=== PATIENT | male | born 1965 | race Hispanic/Latino ===

== ENCOUNTER 2017-02-27 08:59 | Inpatient (IN) | payer MEDICAID ==
[2017-02-27 08:59] VITALS: BMI 20.9
[2017-02-27] MEDS ORDERED: Sodium Chloride 0.9% 500 ML IV ONE ×2 (10:34→11:43)
--- NOTE | 2017-02-27 11:06 | C.PDOC ---
History Of Present Illness 51 y/o male presents to ED for evaluation of left leg pain, redness and swelling gradually worsen for "few days". Patient admits to history of chronic pain with intermittent exacerbation. Patient states "I am homeless and suicidal " but denies plan, chest pain, shortness of breath or any other complaints at this time. Time Seen by Provider: 02/27/17 09:31 Chief Complaint (Nursing): Lower Extremity Problem/Injury History Per: Patient History/Exam Limitations: no limitations Onset/Duration Of Symptoms: Days, Gradual Current Symptoms Are (Timing): Still Present Past Medical History Reviewed: Historical Data, Nursing Documentation, Vital Signs Vital Signs: Last Vital Signs Temp 98.2 F 02/27/17 09:22 Pulse 73 02/27/17 09:22 Resp 18 02/27/17 09:22 BP 130/86 02/27/17 09:22 Pulse Ox 98 02/27/17 12:34 - Medical History PMH: Anxiety, Bipolar Disorder, Depression, Deep Vein Thrombosis, Fractures ( Left tibia and ankle), Hypercholesterolemia, Paranoia, Schizophrenia Surgical History: Appendectomy, Tonsillectomy - [facility] Procedures GROUP PSYCHOTHERAPY (02/18/17) INDIVIDUAL PSYCHOTHERAPY, COGNITIVE-BEHAVIORAL (02/18/17) Family History: States: No Known Family Hx - Social History Hx Tobacco Use: Yes Hx Alcohol Use: No Hx Substance Use: No - Immunization History Hx Tetanus Toxoid Vaccination: Yes Hx Influenza Vaccination: Yes Hx Pneumococcal Vaccination: Yes Review Of Systems Except As Marked, All Systems Reviewed And Found Negative. Cardiovascular: Negative for: Chest Pain Respiratory: Negative for: Shortness of Breath Musculoskeletal: Positive for: Leg Pain Psych: Positive for: Suicidal ideation Physical Exam - Physical Exam Appears: Non-toxic, No Acute Distress Skin: Warm, Dry, Rash Head: Normacephalic Eye(s): bilateral: PERRL Nose: No Flaring, No Discharge Oral Mucosa: Moist, No Drooling Tongue: Normal Appearing Lips: Normal Appearing Throat: No Drooling Neck: Trachea Midline, Supple Cardiovascular: Rhythm Regular, No Murmur, No JVD Respiratory: No Accessory Muscle Use, No Rales, No Rhonchi, No Wheezing Gastrointestinal/Abdominal: Soft, No Tenderness, No Guarding, No Rebound Back: No CVA Tenderness Extremity: Normal ROM, Tenderness (diffuse Left ankle), Capillary Refill (less than 2sec to Left foot), No Deformity, Other (left ankle: diffuse non pitting edema extend down to Left foot with scant diffuse erythema, chronic skin changes. NO peroximal streaking.) Extremity: Bilateral: Normal ROM Pulses: Left Dorsalis Pedis: Normal, Right Dorsalis Pedis: Normal Neurological/Psych: Oriented x3, Normal Motor, Normal Sensation, Normal Reflexes ED Course And Treatment - Laboratory Results Result Diagrams: 02/27/17 11:47 02/27/17 11:59 Lab Interpretation: Normal O2 Sat by Pulse Oximetry: 98 (RA) Pulse Ox Interpretation: Normal - Other Rad Let ankle X-Ray: Read By Radiologist Interpretation: Left ankle three views. History: Pain. Comparison: Swelling. Findings: Side plate with screw fixation seen within the distal tibia and fibula of a chronic fracture. Prominent sclerosis, callus formation, cortical irregularity seen at the level of the distal tibia and fibula. Narrowing of the tibiotalar joint space with diffuse osteopenia. Mild productive change at the anterior aspect of the tibiotalar joint space. Prominent plantar and dorsal calcaneal spurring. Degenerative changes within the dorsal aspect the midfoot. Prominent medial and lateral malleolar soft tissue swelling. Impression: Prominent medial and lateral malleolar soft tissue swelling. Postsurgical and posttraumatic changes as described above. Degenerative changes as described above. - CT Scan/US Doppler US LLE Other Rad Studies (CT/US): Radiology Report Reviewed CT/US Interpretation: limited study (-) acute DVT Progress Note: On re-eavluation, pt remained stable, not in nay apparent distress. AFebrile, hemodynamicaly stable. Non-toxic. PUlseOx 98% RA. Neck: Supple. Lungs: CTA B/L, BS equal B/L. CVS: (+)S1S2, reg. Abd: benign. LLE: exam c/w Left ankle edema with chronic skin changes likely sec PVD. Blood work review and appears at baseline, no acute leukocytosis. Doppler US results (+) limited study, although negative for DVT. Pt is medically cleared for psych evaluation. Pt was evaluated by bingo worker Mateusz and case discussed with [id number] and arranged. Disposition - Disposition Disposition: HOSPITALIZED Disposition Time: 12:28 Condition: STABLE Forms: [employer] ([place]) - Clinical Impression Clinical Impression: Suicidal ideation, Bipolar depression, Cellulitis - PA / [employer] OPERATOR / Resident Statement MD/DO has reviewed & agrees with the documentation as recorded. - Scribe Statement The provider has reviewed the documentation as recorded by the Eleuterio Quiles All medical record entries made by the Eleuterio were at my direction and personally dictated by me. I have reviewed the chart and agree that the record accurately reflects my personal performance of the history, physical exam, medical decision making, and the department course for this patient. I have also personally directed, reviewed, and agree with the discharge instructions and disposition.
--- NOTE | 2017-02-27 11:20 | RAD ---
Left ankle three views History: Pain. Comparison: Swelling. Findings: Side plate with screw fixation seen within the distal tibia and fibula of a chronic fracture. Prominent sclerosis, callus formation, cortical irregularity seen at the level of the distal tibia and fibula. Narrowing of the tibiotalar joint space with diffuse osteopenia. Mild productive change at the anterior aspect of the tibiotalar joint space. Prominent plantar and dorsal calcaneal spurring. Degenerative changes within the dorsal aspect the midfoot. Prominent medial and lateral malleolar soft tissue swelling. Impression: Prominent medial and lateral malleolar soft tissue swelling. Postsurgical and posttraumatic changes as described above. Degenerative changes as described above.
[2017-02-27] MEDS ORDERED: Vancomycin 1 GM 1 GM/250 ML BAG IVPB ONE (11:43)
[2017-02-27 11:51] LABS: BASO # 0.1 K/uL (0.0-0.2); BASO % 0.6 % (0.0-2.0); EOS # 0.2 K/uL (0.0-0.7); EOS % 2.3 % (0.0-4.0); HEMATOCRIT 41.9 % (35.0-51.0); LYMPH # 2.4 K/uL (1.0-4.3); LYMPH % 23.9 % (20.0-40.0); MEAN CELL VOLUME 88.7 fL (80.0-94.0); MEAN CORPUSCULAR HEMOGLOBIN 30.6 pg (27.0-31.0); MEAN CORPUSCULAR HGB CONC 34.5 g/dL (33.0-37.0); MEAN PLATELET VOLUME 6.9 fL (7.2-11.7); MONO % 9.8 % (0.0-10.0); WHITE BLOOD COUNT 9.9 K/uL (4.8-10.8)
[2017-02-27 12:07] LABS: CHLORIDE 99 mmol/L (98-107); POTASSIUM 3.4 mmol/L (3.6-5.2); SODIUM 134 mmol/L (132-148)
[2017-02-27 12:09] LABS: ALB/GLOB RATIO 1.9 (1.0-2.1); AST/SGOT 51 U/L (17-59); BILIRUBIN,TOTAL 1.1 mg/dL (0.2-1.3); CARBON DIOXIDE 22 mmol/L (22-30); GFR AFRICAN-AMERICAN > 60; TOTAL PROTEIN 6.7 g/dL (6.3-8.3)
[2017-02-27 12:10] LABS: ALCOHOL SERUM < 10 mg/dl (0-10); ALKALINE PHOSPHATASE 112 U/L (38-126); ALT/SGPT 30 U/L (21-72); BLOOD UREA NITROGEN 22 mg/dL (9-20); CALCIUM 8.8 mg/dl (8.6-10.4); GLUCOSE,RANDOM 92 mg/dL (75-110)
[2017-02-27 12:12] LABS: RBC URINE 1 /hpf (0-3); URINE BACTERIA RARE (<OCC); URINE BILIRUBIN NEGATIVE (NEGATIVE); URINE BLOOD NEGATIVE (NEGATIVE); URINE COLOR Yellow (YELLOW); URINE GLUCOSE (UA) NORMAL (Normal); URINE KETONE TRACE mg/dL (NEGATIVE); URINE LEUKOCYTE ESTERASE NEG Leu/uL (Negative); URINE PROTEIN NEGATIVE (NEGATIVE); WBC URINE 2 /hpf (0-5)
--- NOTE | 2017-02-27 14:18 | VASCLAB ---
PROCEDURE: Left Lower Extremity Venous Duplex Exam. HISTORY: Left lower leg pain, swelling, redness PRIORS: None. TECHNIQUE: Left common femoral, femoral, popliteal and posterior tibial, peroneal and great saphenous veins were evaluated. Flow was assessed with color Doppler, compressibility, assessment of phasic flow and augmentation response. Report prepared by ALY Gallego FINDINGS: LEFT: 1. Common Femoral Vein: 1.1. Compressibility - Fully compressible: Thrombus - None : Flow - Phasic: Augmentation -Normal: Reflux - None. 2. Femoral Vein: 2.1. Compressibility - Fully compressible: Thrombus - None: Flow - Phasic: Augmentation -Normal: Reflux - None. 3. Popliteal Vein: 3.1. Compressibility - Fully compressible: Thrombus - None: Flow - Phasic: Augmentation -Normal: Reflux - None. 4. Posterior Tibial Vein: 4.1. Compressibility - Fully compressible: Thrombus - None: Flow - Phasic: Augmentation -Normal: Reflux - None. 5. Peroneal Vein: 5.1. Not imaged due to swelling 6. Great Saphenous Vein: 6.1. Compressibility - Fully compressible: Thrombus - None: Flow - Phasic: Augmentation - Normal: Reflux - None. OTHER FINDINGS: Normal venous flow noted in the right common femoral vein. IMPRESSION: 1. Unable to clearly image the left peroneal veins due to swelling in the calf. 2. No evidence of deep or superficial vein thrombosis for the remaining veins, of the left lower extremity.
--- NOTE | 2017-02-27 20:52 | PCM.BM ---
<Ingrid Womack - Last Filed: 02/27/17 20:50> Treatment Plan Problems - Problems identified on initial assessmt Depression Date Initiated: 02/27/17 Time Initiated: 14:30 Assessment reference: NA Status: Active Suicidal Ideation Date Initiated: 02/27/17 Time Initiated: 14:30 Assessment reference: NA Treatment assets and liabiliti Patient Assests: cooperative, negotiates basic needs, cognitively intact Patient Liabilities: poor support system, relationship conflicts - Milieu Protocol Maintain good personal hygiene: daily Encourage regular showers, daily Remind patient to perform daily oral care Maintain personal safety: every shift Educate patient to report safety concerns to staff, every shift Monitor environment for contraband/sharps Medication safety: Monitor for expected outcome, potential side effects: every shift, Assess barriers to learning: every shift, Assess readiness for medication education: every shift <David Kumar - Last Filed: 02/28/17 16:11> - Diagnosis (1) Bipolar 1 disorder, depressed Status: Acute Interventions: Assess/adjust medications daily and/or as needed SEE patient on him individual basis 7x/week to assess status of hallucinations. Discuss risks, benefits, side effects and alternatives of medications. 02/28/17 16:12 <Eileen William - Last Filed: 03/01/17 10:51> Family Contact Family involvement: Famliy/SO not involved - Outside Agency Agency 1 Care involvment: Following patient during stay Agency contact name: [facility] Agency contact number: - Goals for Treatment Patient goals for treatment: "I want to go back to the [facility]." Discharge/Continuing Care - Education Needs Education Needs: Patient Medication, Patient Coping Skills - Discharge Discharge Criteria: Tolerates medication w/o severe side effects, Free of Suicidal thoughts, Reduction of target symptoms Discharge to:: Care Home - Treatment Team Participation Discussed with Family/SO: No Was Patient/Family/SO present at Treatment Team Meeting: Yes
--- NOTE | 2017-02-28 13:09 | CP.PCM.CON ---
<Johny Gruber - Last Filed: 02/28/17 15:30> History of Present Illness - History of Present Illness History of Present Illness: Pt is a 51yo M presents with swelling, tenderness, and paresthesias of the LLE for the past week. The pt reports that his LLE has always been more swollen after he sustained trauma that fractured his L tibia and ankle which required [place] [address] Ch[address]al, he was sent to rehab but continues to have difficulty weight bearing as well as issues with swelling and pain. The Pt reports that the leg began to swell last Monday and became progressively worse until last night. The pt reports that he has moderate pain in the LLE but feels more numbness in the leg than pain. He says the leg is more erythematous than normal. He denies n/v/f/c, chest pain, shortness of breath, abd pain, headache, dizziness, diarrhea, constipation. PMD: none PMH: HLD PSH: L ORIF tibia and ankle (jun 2015), septoplasty, appendectomy, tonsillectomy Psych: Bipolar Type 1 Meds: Lipitor Allergies: NKDA FamHx: non-contributory SocialHx: denies tobacco, etoh, and illicit drug use Review of Systems - Constitutional Constitutional: absent: Fever, Headache - Cardiovascular Cardiovascular: absent: Chest Pain, Dyspnea on Exertion - Respiratory Respiratory: absent: Dyspnea on Exertion, Wheezing - Gastrointestinal Gastrointestinal: absent: Abdominal Pain, Constipation, Diarrhea - Musculoskeletal Musculoskeletal: Joint Swelling, Numbness - Integumentary Integumentary: Erythema - Neurological Neurological: absent: Dizziness, Headaches Past Patient History - Infectious Disease Hx of Infectious Diseases: None - Tetanus Immunizations Tetanus Immunization: Unknown - Past Medical History & Family History Past Medical History?: No - Past Social History Smoking Status: Never Smoked - CARDIAC Hx Hypercholesterolemia: Yes - PULMONARY Hx Tuberculosis: No - NEUROLOGICAL HX Cerebrovascular Accident: No Hx Seizures: No - HEENT Hx HEENT Problems: No - ENDOCRINE/METABOLIC Hx Endocrine Disorders: No - HEMATOLOGICAL/ONCOLOGICAL Hx Cancer: No Hx Human Immunodeficiency Virus (HIV): No - INTEGUMENTARY Hx Dermatological Problems: No - MUSCULOSKELETAL/RHEUMATOLOGICAL Hx Fractures: Yes (Left tibia and ankle) - GASTROINTESTINAL Hx Gastrointestinal Disorders: Yes Hx Gastroesophageal Reflux: Yes - GENITOURINARY/GYNECOLOGICAL Hx Sexually Transmitted Disorders: No - PSYCHIATRIC Hx Substance Use: No - SURGICAL HISTORY Hx Appendectomy: Yes Hx Tonsillectomy: Yes - ANESTHESIA Hx Anesthesia: Yes Hx Anesthesia Reactions: No Meds Allergies/Adverse Reactions: Allergies Allergy/AdvReac Type Severity Reaction Status Date / Time No Known Allergies Allergy Verified 02/27/17 09:25 - Medications Medications: Current Medications Hydroxyzine HCl (Atarax) 25 mg PO Q6H PRN PRN Reason: Anxiety Ibuprofen (Motrin Tab) 600 mg PO Q8H PRN PRN Reason: Pain, moderate (4-7) Pneumococcal Polyvalent Vaccine (Pneumovax 23 Vaccine) 0.5 ml IM .ONCE ONE Stop: 03/01/17 10:01 Trazodone HCl (Desyrel) 50 mg PO Q6H PRN PRN Reason: Insomnia Physical Exam - Constitutional Appears: Well, Non-toxic, No Acute Distress - Head Exam Head Exam: ATRAUMATIC, NORMAL INSPECTION - Eye Exam Eye Exam: EOMI, Normal appearance - ENT Exam ENT Exam: Mucous Membranes Moist, Normal Exam - Respiratory Exam Respiratory Exam: Clear to Auscultation Bilateral. absent: Wheezes - Cardiovascular Exam Cardiovascular Exam: REGULAR RHYTHM, +S1, +S2 - GI/Abdominal Exam GI & Abdominal Exam: Normal Bowel Sounds - Extremities Exam Extremities exam: Positive for: joint swelling, tenderness, pedal pulses present Additional comments: Erythema, swelling w/ tenderness and paresthesias of LLE - Neurological Exam Neurological exam: Alert, Normal Gait, Oriented x3 - Skin Skin Exam: Erythema, Warm Additional comments: LLE mid tibia, ankle, and foot. Results - Vital Signs Recent Vital Signs: Last Vital Signs Temp 97.7 F 02/28/17 07:23 Pulse 59 L 02/28/17 07:23 Resp 18 02/28/17 07:23 BP 111/69 02/28/17 07:23 Pulse Ox 100 02/27/17 14:01 - Labs Result Diagrams: 02/27/17 11:47 02/27/17 11:59 Labs: Laboratory Results - last 24 hr 02/27/17 20:03 [place] < 0.2 L Assessment & Plan (1) Cellulitis Assessment and Plan: afebrile, no leukocytosis X-Ray 02/27/17 left ankle, Impression: Prominent medial and lateral malleolar soft tissue swelling. Duplex scan LLE 02/27/17, Impression: 1. unable to clearly image the left peroneal veins due to swelling in the calf, 2. No evidence of deep or superficial vein thrombosis for the remaining veins, of the left lower extremity. Blood culture collected 02/27/17, f/u clindamycin 450mg po q6h started 02/28/17 Status: Acute (2) Suicidal ideation Assessment and Plan: Management/Treatment as per Psychiatry. Status: Acute - Date & Time Date: 02/28/17 Time: 13:12 <Merced Rosado - Last Filed: 02/28/17 17:36> Meds - Medications Medications: Current Medications Clindamycin HCl (Cleocin) 450 mg PO Q6H PAULINA Last Admin: 02/28/17 16:25 Dose: 450 mg Haloperidol (Haldol) 5 mg PO Q6 PRN PRN Reason: Agitation Hydroxyzine HCl (Atarax) 25 mg PO Q6H PRN PRN Reason: Anxiety Ibuprofen (Motrin Tab) 600 mg PO Q8H PRN PRN Reason: Pain, moderate (4-7) [place] Carbonate ([place] Carbonate 300mg) 900 mg PO HS PAULINA Pneumococcal Polyvalent Vaccine (Pneumovax 23 Vaccine) 0.5 ml IM .ONCE ONE Stop: 03/01/17 10:01 Trazodone HCl (Desyrel) 100 mg PO Q6H PRN PRN Reason: Insomnia Results - Vital Signs Recent Vital Signs: Last Vital Signs Temp 97.7 F 02/28/17 07:23 Pulse 77 02/28/17 15:42 Resp 18 02/28/17 07:23 BP 114/65 02/28/17 15:42 Pulse Ox 100 02/27/17 14:01 - Labs Result Diagrams: 02/27/17 11:47 02/27/17 11:59 Labs: Laboratory Results - last 24 hr 02/27/17 20:03 [place] < 0.2 L Attending/Attestation - Attestation I have personally seen and examined this patient.: Yes I have fully participated in the care of the patient.: Yes I have reviewed all pertinent clinical information: Yes Notes (Text): This is a 51yo Male was seen at psychiatry unit for swelling, tenderness, and paresthesias of the LLE for the past week. The pt reports that his LLE has always been more swollen after he sustained trauma that fractured his L tibia and ankle which required surgery in [address] Ch[address]al, he was sent to rehab but continues to have difficulty weight bearing as well as issues with swelling and pain. The Pt reports that the leg began to swell last Monday and became progressively worse until last night.No fever. Patient was seen and examined.Discussed with the resident.Agree with the assessment and documentation ebrile, no leukocytosis X-Ray 02/27/17 left ankle, Impression: Prominent medial and lateral malleolar soft tissue swelling. Duplex scan LLE 02/27/17, Impression: 1. unable to clearly image the left peroneal veins due to swelling in the calf, 2. No evidence of deep or superficial vein thrombosis for the remaining veins, of the left lower extremity. Blood culture collected 02/27/17, f/u Start on oral clindamycin 450mg po q6h and follow him.If no improvement may need IV antibiotics in the medical floor
--- NOTE | 2017-02-28 16:18 | PCM.PSYCH ---
Initial Psychiatric Evaluation - Initial Psychiatric Evaluation Type of Admission: Voluntary Legal Status: Capacity Chief Complaint (in patient's own words): I was depressed and suicidal. History of Present Illness and Precipitating Events: Patient is a 51 years old , unemployed, currently homeless male with history of bipolar 1 disorder, following up with his psychiatrist at [facility], currently noncompliant for last 1 week was admitted due to suicidal ideations. Initially patient came to the ER for the treatment of left leg swelling and pain. In the ER patient expressed suicidal ideations and depression and was admitted to psych floor. Patient reported feeling depressed with decreased sleep no change in appetite had suicidal ideations before without any plan. Patient denied any current suicidal ideations. Denied any suicidal attempts. Denied any psychotic or anxiety symptoms. History of more than 10 inpatient psychiatric admissions. Reported using cannabis in the past. Last use reported 3 years ago. Patient has history of appendectomy, tonsillectomy and left tibia and ankle surgery. Patient has history of incarceration first about 3 years ago for possession of drugs and second time more than one year ago for criminal mischief. Not on probation. Patient was born in [place], has Masters in [employer]. His last job was 4 years ago. According to patient he lost his job due to downsizing of the [employer]. He is and has no children. Currently homeless for last 3 years. Height is 6 feet 2 inches and weight is 185 pounds. Current Medications: Active Medications Generic Name Dose Route Start Last Admin Trade Name Freq PRN Reason Stop Dose Admin Clindamycin HCl 450 mg 02/28/17 15:30 Cleocin PO Q6H PAULINA Haloperidol 5 mg 02/28/17 13:17 Haldol PO Q6 PRN Agitation Hydroxyzine HCl 25 mg 02/28/17 00:17 Atarax PO Q6H PRN Anxiety Ibuprofen 600 mg 02/28/17 00:17 Motrin Tab PO Q8H PRN Pain, moderate (4-7) [place] Carbonate 900 mg 02/28/17 22:00 [place] Carbonate 300mg PO HS PAULINA Pneumococcal Polyvalent Vaccine 0.5 ml 03/01/17 10:00 Pneumovax 23 Vaccine IM 03/01/17 10:01 .ONCE ONE Trazodone HCl 100 mg 02/28/17 13:18 Desyrel PO Q6H PRN Insomnia Past Psychiatric History - Past Psychiatric History Previous Treatment History: Inpatient Prior Professional Help: Inpatient and outpatient At [facility]: Including [facility] History of Abuse: None reported History of ETOH/Drug Use: See HPI History of Family Illness: None reported Pertinent Medical Hx (Current Medical&Sleep Prob, Allergies): Allergies Allergy/AdvReac Type Severity Reaction Status Date / Time No Known Allergies Allergy Verified 02/27/17 09:25 No Known Home Med 02/27/17 Hypercholesterolemia Review of Systems - Psychiatric Psychiatric: Depression Mental Status Examination - Personal Presentation Personal Presentation: Looks stated age - Affect Affect: Depressed - Motor Activity Motor Activity: Calm - Reliability in Providing Information Reliability in Providing Information: Fair - Speech Speech: Organized - Mood Mood: Depressed - Formal Thought Process Formal Thought Process: No Impairment - Hallucinations/Delusions Hallucinations: Other (None reported) Delusions: Other - Obsessions/Compulsions Obsessions: None Compulsions: None - Cognitive Functions Orientation: Person, Place, Situation, Time Sensorium: Alert Attention/Concentration: Attentive Abstract Thinking: Orient Estimate of Intelligence: Average Judgement: Intact, as evidence by: Insight regarding need for hospitalization Memory: Recent intact, as evidence by: 3/3 object recall, Remote intact, as evidenced by: Ability to recall historical events - Risk Risk: Diminished functioning - Strength & Assets Inventory Strength & Assets Inventory: Education, Cooperative - Limitations Limitations: Other DSM 5 DX - DSM 5 DSM 5 Diagnosis: Bipolar 1 disorder most recent episode depressed - Recommended/Plan of Treatment Treatment Recommendations and Plan of Treatment: Patient education Supportive therapy We will start lithium. Patient was taking 900 mg of lithium at bedtime from his psychiatrist. Does confirm. Other when necessary medications Consult for medicine for his leg infection and swelling Projected ELOS: 8-10 days - Smoking Cessation Smoking Cessation Initiated: No Reason for not providing: Patient doesn't smoke cigarette
[2017-02-28] MEDS: Potassium Chloride 20 mEq ER Tab PO ONE ×2 (16:25→16:30)
[2017-02-28] MEDS ORDERED: Potassium Chloride 20 mEq ER Tab PO ONE (17:00)
[2017-03-01 08:52] LABS: BASO # 0.1 K/uL (0.0-0.2); BASO % 1.3 % (0.0-2.0); EOS # 0.3 K/uL (0.0-0.7); EOS % 3.3 % (0.0-4.0); HEMATOCRIT 42.7 % (35.0-51.0); LYMPH # 2.4 K/uL (1.0-4.3); LYMPH % 30.9 % (20.0-40.0); MEAN CELL VOLUME 88.8 fL (80.0-94.0); MEAN CORPUSCULAR HEMOGLOBIN 30.8 pg (27.0-31.0); MEAN CORPUSCULAR HGB CONC 34.7 g/dL (33.0-37.0); MEAN PLATELET VOLUME 7.4 fL (7.2-11.7); MONO # 0.6 K/uL (0.0-0.8); MONO % 7.4 % (0.0-10.0); NRBC % 0.1 % (0.0-2.0); RED CELL DISTRIBUTION WIDTH 13.4 % (11.5-14.5); WHITE BLOOD COUNT 7.8 K/uL (4.8-10.8)
[2017-03-01 09:06] LABS: CHLORIDE 104 mmol/L (98-107)
[2017-03-01 09:07] LABS: POTASSIUM 4.2 mmol/L (3.6-5.2); SODIUM 136 mmol/L (132-148)
[2017-03-01 09:10] LABS: ALB/GLOB RATIO 1.1 (1.0-2.1); ALKALINE PHOSPHATASE 92 U/L (38-126); ALT/SGPT 32 U/L (21-72); AST/SGOT 20 U/L (17-59); BILIRUBIN,TOTAL 0.4 mg/dL (0.2-1.3); BLOOD UREA NITROGEN 17 mg/dL (9-20); CARBON DIOXIDE 24 mmol/L (22-30); GFR AFRICAN-AMERICAN > 60; GLUCOSE,RANDOM 90 mg/dL (75-110); TOTAL PROTEIN 7.5 g/dL (6.3-8.3)
[2017-03-01 09:11] LABS: CALCIUM 9.1 mg/dl (8.6-10.4)
[2017-03-01] MEDS ORDERED: Influenza Vaccine 60 mcg/0.5 mL SYR (4YR UP) IM ONE (10:00)
[2017-03-01] MEDS ORDERED: Pneumococcal 23-Valent Vaccine IM ONE (10:00)
--- NOTE | 2017-03-01 12:46 | PCM.PYCHPN ---
Psychiatric Progress Note - Psychiatric Progress Note Patient seen today, length of contact: 15 minutes Patient Chief Complaint: I'm feeling much better with the treatment. Problems Identified/Issues Discussed: Patient seen. Chart reviewed. Case discussed with the staff. Issues related to illness and treatment were discussed with the patient. Reported compliant with treatment with no adverse affects. Tolerating treatment very well. Reported feeling much better. Swelling and redness on his left leg is also that better after start of clindamycin. Needs more time for stabilization. Patient time of evaluation, patient was awake alert oriented 3, had no delusions, no auditory or visual hallucinations, no suicidal ideations or homicidal ideations. Medical Problems: Hypercholesterinemia Diagnostic Results: Reviewed DSM 5 Symptoms Update: Improving with treatment Medication Change: No Medical Record Reviewed: Yes Consults ordered or reviewed: Reviewed Mental Status Examination - Cognitive Function Orientation: Person, Place, Situation, Time Memory: Intact Attention: WNL Concentration: WNL Association: WN Fund of Knowledge: [facility] Decription of patient's judgement and insights: Fair - Mood Mood: Depressed (Much less than before) - Affect Affect: Other (Appropriate) - Speech Speech: Appropriate - Formal Thought Process Formal Thought Process: No Impairment Psychotic Thoughts and Behaviors: None - Suicidal Ideation Suicidal Ideation: No - Homicidal Ideation Homicidal Ideation: No Goal/Treatment Plan - Goal/Treatment Plan Need for Continued Stay: Remain at risks for inpatient hospitalization, Discharge may exacerbated symptoms, Severe functional impairment Progress Toward Problem(s) and Goals/Treatment Plan: Patient education Supportive therapy Continue treatment as before Patient will go to [facility] for follow-up care with his psychiatrist , after discharge from the hospital. Estimated Date of D/C: 03/06/17 - Smoking Cessation Smoking Cessation Initiated: No
--- NOTE | 2017-03-01 17:06 | CP.PCM.PN ---
<Johyn Gruber - Last Filed: 03/01/17 17:03> Subjective - Date & Time of Evaluation Date of Evaluation: 03/01/17 Time of Evaluation: 09:20 - Subjective Subjective: Patient was seen and examined this AM in the psychiatry unit. He reports improvement in pain in his lower left extremity. He denies numbness, tingling, burning. He says he's been taking his antibiotic medications. He denies all other prompts on review of symptoms. He denies fever, chest pain, chills, nausea , vomiting, diarrhea, abdominal pain. Objective - Vital Signs/Intake and Output Vital Signs (last 24 hours): Temp Pulse Resp BP Pulse Ox 97.8 F 51 L 18 126/72 100 03/01/17 07:53 03/01/17 16:03 03/01/17 07:53 03/01/17 16:03 02/27/17 14:01 - Medications Medications: Current Medications Clindamycin HCl (Cleocin) 450 mg PO Q6H [facility] Last Admin: 03/01/17 15:31 Dose: 450 mg Haloperidol (Haldol) 5 mg PO Q6 PRN PRN Reason: Agitation Hydroxyzine HCl (Atarax) 25 mg PO Q6H PRN PRN Reason: Anxiety Ibuprofen (Motrin Tab) 600 mg PO Q8H PRN PRN Reason: Pain, moderate (4-7) [place] Carbonate ([place] Carbonate 300mg) 900 mg PO HS [facility] Last Admin: 02/28/17 21:47 Dose: 900 mg Trazodone HCl (Desyrel) 100 mg PO Q6H PRN PRN Reason: Insomnia Last Admin: 02/28/17 21:48 Dose: 100 mg - Labs Labs: 03/01/17 08:33 03/01/17 08:33 - Additional Findings Additional findings: - Constitutional Appears: Well, Non-toxic, No Acute Distress - Head Exam Head Exam: ATRAUMATIC, NORMAL INSPECTION - Eye Exam Eye Exam: EOMI, Normal appearance - ENT Exam ENT Exam: Mucous Membranes Moist, Normal Exam - Respiratory Exam Respiratory Exam: Clear to Auscultation Bilateral. absent: Wheezes - Cardiovascular Exam Cardiovascular Exam: REGULAR RHYTHM, +S1, +S2 - GI/Abdominal Exam GI & Abdominal Exam: Normal Bowel Sounds - Extremities Exam Extremities exam: Positive for: joint swelling, tenderness, pedal pulses present Additional comments: Erythema, swelling w/ tenderness and paresthesias of LLE in mid-dover - Neurological Exam Neurological exam: Alert, Normal Gait, Oriented x3 - Skin Skin Exam: Erythema, Warm Additional comments: LLE mid tibia, ankle, and foot. Assessment and Plan (1) Cellulitis Status: Acute (2) Suicidal ideation Status: Acute - Assessment and Plan (Free Text) Assessment: Assessment & Plan (1) Left Leg Cellulitis Assessment and Plan: improvement noted, afebrile, no leukocytosis, tolerating oral antibiotics X-Ray 02/27/17 left ankle, Impression: Prominent medial and lateral malleolar soft tissue swelling. Duplex scan LLE 02/27/17, Impression: 1. unable to clearly image the left peroneal veins due to swelling in the calf, 2. No evidence of deep or superficial vein thrombosis for the remaining veins, of the left lower extremity. Blood culture collected 02/27/17, f/u continue clindamycin 450mg po q6h, started 02/28/17 Status: Acute (2) Depression and Bipolar Disorder Assessment and Plan: Management/Treatment as per Psychiatry. Status: Acute <Merced Rosado - Last Filed: 03/01/17 18:00> Objective - Vital Signs/Intake and Output Vital Signs (last 24 hours): Temp Pulse Resp BP Pulse Ox 97.8 F 51 L 18 126/72 100 03/01/17 07:53 03/01/17 16:03 03/01/17 07:53 03/01/17 16:03 02/27/17 14:01 - Medications Medications: Current Medications Clindamycin HCl (Cleocin) 450 mg PO Q6H [facility] Last Admin: 03/01/17 15:31 Dose: 450 mg Haloperidol (Haldol) 5 mg PO Q6 PRN PRN Reason: Agitation Hydroxyzine HCl (Atarax) 25 mg PO Q6H PRN PRN Reason: Anxiety Ibuprofen (Motrin Tab) 600 mg PO Q8H PRN PRN Reason: Pain, moderate (4-7) [place] Carbonate ([place]agner Carbonate 300mg) 900 mg PO HS [facility] Last Admin: 02/28/17 21:47 Dose: 900 mg Trazodone HCl (Desyrel) 100 mg PO Q6H PRN PRN Reason: Insomnia Last Admin: 02/28/17 21:48 Dose: 100 mg - Labs Labs: 03/01/17 08:33 03/01/17 08:33 Attending/Attestation - Attestation I have personally seen and examined this patient.: Yes I have fully participated in the care of the patient.: Yes I have reviewed all pertinent clinical information, including history, physical exam and plan: Yes Notes (Text): This is is a 51yo Male was seen at psychiatry unit for swelling, tenderness, and paresthesias of the LLE for the past week. Started on clindamycin yesterday He was seen and examined this morning with the resident.Patient feels better.Swelling and tenderness is improving 1. Left leg cellulitis- continue oral clindamycin 450mg po q6h and follow him. Agree with the documentation of the resident's assessment and plan.
[2017-03-02 08:24] LABS: BASO # 0.1 K/uL (0.0-0.2); BASO % 0.8 % (0.0-2.0); EOS # 0.3 K/uL (0.0-0.7); HEMATOCRIT 39.4 % (35.0-51.0); LYMPH # 2.3 K/uL (1.0-4.3); LYMPH % 34.6 % (20.0-40.0); MEAN CELL VOLUME 88.7 fL (80.0-94.0); MEAN CORPUSCULAR HEMOGLOBIN 31.1 pg (27.0-31.0); MEAN PLATELET VOLUME 7.3 fL (7.2-11.7); MONO # 0.6 K/uL (0.0-0.8); NRBC % 0.1 % (0.0-2.0); RED CELL DISTRIBUTION WIDTH 13.3 % (11.5-14.5); WHITE BLOOD COUNT 6.7 K/uL (4.8-10.8)
[2017-03-02 08:49] LABS: CHLORIDE 106 mmol/L (98-107); SODIUM 136 mmol/L (132-148)
[2017-03-02 08:52] LABS: ALB/GLOB RATIO 1.5 (1.0-2.1); ALKALINE PHOSPHATASE 79 U/L (38-126); ALT/SGPT 29 U/L (21-72); AST/SGOT 17 U/L (17-59); BILIRUBIN,TOTAL 0.3 mg/dL (0.2-1.3); BLOOD UREA NITROGEN 13 mg/dL (9-20); CARBON DIOXIDE 21 mmol/L (22-30); GFR AFRICAN-AMERICAN > 60; GLUCOSE,RANDOM 93 mg/dL (75-110); TOTAL PROTEIN 5.7 g/dL (6.3-8.3)
[2017-03-02 08:53] LABS: CALCIUM 8.4 mg/dl (8.6-10.4)
--- NOTE | 2017-03-02 10:38 | CP.PCM.PN ---
<YasmaniJohny R - Last Filed: 03/02/17 10:35> Subjective - Date & Time of Evaluation Date of Evaluation: 03/02/17 Time of Evaluation: 10:35 - Subjective Subjective: PGY-1 note for medicine, Dr Rosado. Patient was seen and examined in psych unit today at 10:00 AM. He was in his wheelchair and appeared comfortable. He denied leg pain, fevers, chills. He says he elevates his foot when he sleeps. He says he's noticed less swelling today. He denied all other prompts on review of systems. Objective - Vital Signs/Intake and Output Vital Signs (last 24 hours): Temp Pulse Resp BP Pulse Ox 97.9 F 64 20 108/67 100 03/02/17 07:19 03/02/17 07:19 03/02/17 07:19 03/02/17 07:19 02/27/17 14:01 - Medications Medications: Current Medications Clindamycin HCl (Cleocin) 450 mg PO Q6H [facility] Stop: 03/03/17 15:31 Last Admin: 03/02/17 10:07 Dose: 450 mg Haloperidol (Haldol) 5 mg PO Q6 PRN PRN Reason: Agitation Hydroxyzine HCl (Atarax) 25 mg PO Q6H PRN PRN Reason: Anxiety Ibuprofen (Motrin Tab) 600 mg PO Q8H PRN PRN Reason: Pain, moderate (4-7) [place] Carbonate ([place] Carbonate 300mg) 900 mg PO HS [facility] Last Admin: 03/01/17 21:20 Dose: 900 mg Trazodone HCl (Desyrel) 100 mg PO Q6H PRN PRN Reason: Insomnia Last Admin: 03/01/17 21:20 Dose: 100 mg - Labs Labs: 03/02/17 08:10 03/02/17 08:10 - Additional Findings Additional findings: - Constitutional Appears: Well, Non-toxic, No Acute Distress - Head Exam Head Exam: ATRAUMATIC, NORMAL INSPECTION - Eye Exam Eye Exam: EOMI, Normal appearance - ENT Exam ENT Exam: Mucous Membranes Moist, Normal Exam - Respiratory Exam Respiratory Exam: Clear to Auscultation Bilateral. absent: Wheezes - Cardiovascular Exam Cardiovascular Exam: REGULAR RHYTHM, +S1, +S2 - GI/Abdominal Exam GI & Abdominal Exam: Normal Bowel Sounds - Extremities Exam Extremities exam: Positive for: joint swelling, tenderness, pedal pulses present Additional comments: Erythema, swelling w/ tenderness and paresthesias of LLE in mid-d[place] to ankle - Neurological Exam Neurological exam: Alert, Normal Gait, Oriented x3 motor strength of LLE 5/5 - Skin Skin Exam: Erythema, Warm Additional comments: LLE mid tibia, ankle, and foot. Assessment and Plan (1) Cellulitis Status: Acute (2) Suicidal ideation Status: Acute - Assessment and Plan (Free Text) Assessment: (1) Left Leg Cellulitis Assessment and Plan: improvement noted, afebrile, no leukocytosis, tolerating oral antibiotics X-Ray 02/27/17 left ankle, Impression: Prominent medial and lateral malleolar soft tissue swelling. Duplex scan LLE 02/27/17, Impression: 1. unable to clearly image the left peroneal veins due to swelling in the calf, 2. No evidence of deep or superficial vein thrombosis for the remaining veins, of the left lower extremity. Blood culture collected 02/27/17, negative up to date continue clindamycin 450mg po q6h, started 02/28/17, last dose will be 03/05/17 @ 15:00. Status: Acute (2) Depression and Bipolar Disorder Assessment and Plan: Management/Treatment as per Psychiatry. Status: Acute <Merced Rosado - Last Filed: 03/02/17 18:39> Objective - Vital Signs/Intake and Output Vital Signs (last 24 hours): Temp Pulse Resp BP Pulse Ox 97.9 F 52 L 20 124/74 100 03/02/17 07:19 03/02/17 16:05 03/02/17 07:19 03/02/17 16:05 02/27/17 14:01 - Medications Medications: Current Medications Clindamycin HCl (Cleocin) 450 mg PO Q6H [facility] Stop: 03/05/17 15:31 Last Admin: 03/02/17 15:33 Dose: 450 mg Haloperidol (Haldol) 5 mg PO Q6 PRN PRN Reason: Agitation Hydroxyzine HCl (Atarax) 25 mg PO Q6H PRN PRN Reason: Anxiety Ibuprofen (Motrin Tab) 600 mg PO Q8H PRN PRN Reason: Pain, moderate (4-7) [place] Carbonate ([place] Carbonate 300mg) 900 mg PO HS [facility] Last Admin: 03/01/17 21:20 Dose: 900 mg Trazodone HCl (Desyrel) 100 mg PO Q6H PRN PRN Reason: Insomnia Last Admin: 03/01/17 21:20 Dose: 100 mg - Labs Labs: 03/02/17 08:10 03/02/17 08:10 Attending/Attestation - Attestation I have personally seen and examined this patient.: Yes I have fully participated in the care of the patient.: Yes I have reviewed all pertinent clinical information, including history, physical exam and plan: Yes Notes (Text): This is is a 51years Male was seen at psychiatry unit for swelling, tenderness , and paresthesias of the LLE for the past week. on clindamycin He was seen and examined this morning with the resident.Shows some improvement .Patient feels better.Swelling and tenderness is improving 1. Left leg cellulitis- continue oral clindamycin 450mg po q6h and follow him tomorrow.
--- NOTE | 2017-03-02 12:18 | PCM.PYCHPN ---
Psychiatric Progress Note - Psychiatric Progress Note Patient seen today, length of contact: 15 minutes Patient Chief Complaint: I'm feeling much better with the treatment. Swelling and pain in my leg is less. Problems Identified/Issues Discussed: Patient seen. Chart reviewed. Case discussed with the staff. Issues related to illness and treatment were discussed with the patient. Reported compliant with treatment with no adverse affects. Tolerating treatment very well. Reported feeling much better. Swelling and pain in his left leg is also less. Needs more time for stabilization. Patient time of evaluation, patient was awake alert oriented 3, had no delusions, no auditory or visual hallucinations, no suicidal ideations or homicidal ideations. Medical Problems: Hypercholesterinemia Diagnostic Results: Reviewed DSM 5 Symptoms Update: Improving with treatment Medication Change: No Medical Record Reviewed: Yes Consults ordered or reviewed: Reviewed Mental Status Examination - Cognitive Function Orientation: Person, Place, Situation, Time Memory: Intact Attention: WNL Concentration: WNL Association: WNL Fund of Knowledge: WN Decription of patient's judgement and insights: Fair - Mood Mood: Depressed (Much less than before) - Affect Affect: Other (Appropriate) - Speech Speech: Appropriate - Formal Thought Process Formal Thought Process: No Impairment Psychotic Thoughts and Behaviors: None - Suicidal Ideation Suicidal Ideation: No - Homicidal Ideation Homicidal Ideation: No Goal/Treatment Plan - Goal/Treatment Plan Need for Continued Stay: Remain at risks for inpatient hospitalization, Discharge may exacerbated symptoms, Severe functional impairment Progress Toward Problem(s) and Goals/Treatment Plan: Patient education Supportive therapy Continue treatment as before Medical team is also on the case for his left leg swelling and pain. Patient will go to [facility] for follow-up care with his psychiatrist , after discharge from the hospital. Estimated Date of D/C: 03/06/17 - Smoking Cessation Smoking Cessation Initiated: No
[2017-03-03 07:36] LABS: BASO # 0.1 K/uL (0.0-0.2); BASO % 0.9 % (0.0-2.0); EOS # 0.3 K/uL (0.0-0.7); EOS % 3.9 % (0.0-4.0); HEMATOCRIT 40.7 % (35.0-51.0); LYMPH # 2.5 K/uL (1.0-4.3); LYMPH % 35.7 % (20.0-40.0); MEAN CELL VOLUME 88.8 fL (80.0-94.0); MEAN CORPUSCULAR HEMOGLOBIN 30.7 pg (27.0-31.0); MEAN CORPUSCULAR HGB CONC 34.6 g/dL (33.0-37.0); MEAN PLATELET VOLUME 7.3 fL (7.2-11.7); MONO # 0.5 K/uL (0.0-0.8); MONO % 7.9 % (0.0-10.0); NRBC % 0.1 % (0.0-2.0); WHITE BLOOD COUNT 6.9 K/uL (4.8-10.8)
[2017-03-03 08:04] LABS: CHLORIDE 106 mmol/L (98-107); POTASSIUM 3.9 mmol/L (3.6-5.2); SODIUM 136 mmol/L (132-148)
[2017-03-03 08:06] LABS: GFR AFRICAN-AMERICAN > 60
[2017-03-03 08:07] LABS: ALB/GLOB RATIO 1.6 (1.0-2.1); ALKALINE PHOSPHATASE 85 U/L (38-126); ALT/SGPT 27 U/L (21-72); AST/SGOT 20 U/L (17-59); BILIRUBIN,TOTAL 0.5 mg/dL (0.2-1.3); BLOOD UREA NITROGEN 12 mg/dL (9-20); CALCIUM 8.6 mg/dl (8.6-10.4); CARBON DIOXIDE 19 mmol/L (22-30); GLUCOSE,RANDOM 88 mg/dL (75-110); TOTAL PROTEIN 5.9 g/dL (6.3-8.3)
--- NOTE | 2017-03-03 16:09 | CP.PCM.PN ---
Subjective - Date & Time of Evaluation Date of Evaluation: 03/03/17 Time of Evaluation: 13:30 - Subjective Subjective: PGY-[address] Rosado. Patient was seen and examined in psych unit. He says his leg feels better. He denies numbness, tingliness, or increased pressure in his leg. He denies bleeding from his infection site. He denies fever, chills. Objective - Vital Signs/Intake and Output Vital Signs (last 24 hours): Temp Pulse Resp BP Pulse Ox 98.0 F 54 L 20 115/69 98 03/03/17 07:38 03/03/17 07:38 03/03/17 07:38 03/03/17 07:38 03/03/17 07:38 - Medications Medications: Current Medications Clindamycin HCl (Cleocin) 450 mg PO Q6H [facility] Stop: 03/05/17 15:31 Last Admin: 03/03/17 15:32 Dose: 450 mg Haloperidol (Haldol) 5 mg PO Q6 PRN PRN Reason: Agitation Hydroxyzine HCl (Atarax) 25 mg PO Q6H PRN PRN Reason: Anxiety Ibuprofen (Motrin Tab) 600 mg PO Q8H PRN PRN Reason: Pain, moderate (4-7) [place] Carbonate ([place] Carbonate 300mg) 900 mg PO HS [facility] Last Admin: 03/02/17 21:36 Dose: 900 mg Trazodone HCl (Desyrel) 100 mg PO Q6H PRN PRN Reason: Insomnia Last Admin: 03/01/17 21:20 Dose: 100 mg - Labs Labs: 03/03/17 07:11 03/03/17 07:11 - Additional Findings Additional findings: - Constitutional Appears: Well, Non-toxic, No Acute Distress - Head Exam Head Exam: ATRAUMATIC, NORMAL INSPECTION - Eye Exam Eye Exam: EOMI, Normal appearance - ENT Exam ENT Exam: Mucous Membranes Moist, Normal Exam - Respiratory Exam Respiratory Exam: Clear to Auscultation Bilateral. absent: Wheezes - Cardiovascular Exam Cardiovascular Exam: REGULAR RHYTHM, +S1, +S2 - GI/Abdominal Exam GI & Abdominal Exam: Normal Bowel Sounds - Extremities Exam Extremities exam: Positive for: joint swelling, tenderness, pedal pulses present Additional comments: Erythema, swelling w/ tenderness and paresthesias of LLE in mid-dover to ankle - Neurological Exam Neurological exam: Alert, Normal Gait, Oriented x3 motor strength of LLE 5/5 - Skin Skin Exam: Erythema, Warm Additional comments: LLE mid tibia, ankle, and foot. Assessment and Plan (1) Cellulitis Status: Acute (2) Suicidal ideation Status: Acute - Assessment and Plan (Free Text) Assessment: (1) Left Leg Cellulitis Assessment and Plan: improvement noted, afebrile, no leukocytosis, tolerating oral antibiotics X-Ray 02/27/17 left ankle, Impression: Prominent medial and lateral malleolar soft tissue swelling. Duplex scan LLE 02/27/17, Impression: 1. unable to clearly image the left peroneal veins due to swelling in the calf, 2. No evidence of deep or superficial vein thrombosis for the remaining veins, of the left lower extremity. Blood culture collected 02/27/17, negative up to date continue clindamycin 450mg po q6h, started 02/28/17, last dose will be 03/05/17 @ 15:00. Continue abx as ordered. Last dose will be 03/05/17 @ 15:00. Medicine will sign off. Status: Acute (2) Depression and Bipolar Disorder Assessment and Plan: Management/Treatment as per Psychiatry. Status: Acute
--- NOTE | 2017-03-03 22:47 | PCM.PYCHPN ---
Psychiatric Progress Note - Psychiatric Progress Note Patient seen today, length of contact: 15 minutes Patient Chief Complaint: I'm feeling much better with the treatment. Swelling and pain in my leg is less. Problems Identified/Issues Discussed: Patient seen. Chart reviewed. Case discussed with the staff. Issues related to illness and treatment were discussed with the patient. Reported compliant with treatment with no adverse affects. Tolerating treatment very well. Reported feeling much better. Swelling and pain in his left leg is also less. Needs more time for stabilization. Medicine is on the case. Patient time of evaluation, patient was awake alert oriented 3, had no delusions, no auditory or visual hallucinations, no suicidal ideations or homicidal ideations. Medical Problems: Hypercholesterinemia Diagnostic Results: Reviewed DSM 5 Symptoms Update: Improving with treatment. Medication Change: No Medical Record Reviewed: Yes Consults ordered or reviewed: Reviewed Mental Status Examination - Cognitive Function Orientation: Person, Place, Situation, Time Memory: Intact Attention: WNL Concentration: WNL Association: WNL Fund of Knowledge: WN Decription of patient's judgement and insights: Fair - Mood Mood: Depressed (Much less than before) - Affect Affect: Other (Appropriate) - Speech Speech: Appropriate - Formal Thought Process Formal Thought Process: No Impairment Psychotic Thoughts and Behaviors: None - Suicidal Ideation Suicidal Ideation: No - Homicidal Ideation Homicidal Ideation: No Goal/Treatment Plan - Goal/Treatment Plan Need for Continued Stay: Remain at risks for inpatient hospitalization, Discharge may exacerbated symptoms, Severe functional impairment Progress Toward Problem(s) and Goals/Treatment Plan: Patient education Supportive therapy Continue treatment as before Medical team is also on the case for his left leg swelling and pain. Patient will go to [facility] for follow-up care with his psychiatrist , after discharge from the hospital. Estimated Date of D/C: 03/06/17 - Smoking Cessation Smoking Cessation Initiated: No
[2017-03-04 07:41] VITALS: O2SAT 95
[2017-03-04 08:43] LABS: BASO # 0.1 K/uL (0.0-0.2); EOS # 0.3 K/uL (0.0-0.7); EOS % 3.5 % (0.0-4.0); HEMATOCRIT 42.2 % (35.0-51.0); LYMPH # 3.1 K/uL (1.0-4.3); LYMPH % 34.8 % (20.0-40.0); MEAN CELL VOLUME 88.5 fL (80.0-94.0); MEAN CORPUSCULAR HEMOGLOBIN 30.1 pg (27.0-31.0); MEAN PLATELET VOLUME 7.3 fL (7.2-11.7); MONO # 0.6 K/uL (0.0-0.8); MONO % 6.9 % (0.0-10.0); NRBC % 0.1 % (0.0-2.0); RED CELL DISTRIBUTION WIDTH 13.2 % (11.5-14.5)
[2017-03-04 09:12] LABS: CHLORIDE 105 mmol/L (98-107)
[2017-03-04 09:13] LABS: SODIUM 135 mmol/L (132-148)
[2017-03-04 09:14] LABS: POTASSIUM 3.9 mmol/L (3.6-5.2)
[2017-03-04 09:16] LABS: ALB/GLOB RATIO 1.1 (1.0-2.1); ALKALINE PHOSPHATASE 93 U/L (38-126); ALT/SGPT 40 U/L (21-72); AST/SGOT 21 U/L (17-59); BILIRUBIN,TOTAL 0.3 mg/dL (0.2-1.3); BLOOD UREA NITROGEN 16 mg/dL (9-20); CARBON DIOXIDE 20 mmol/L (22-30); GFR AFRICAN-AMERICAN > 60; GLUCOSE,RANDOM 79 mg/dL (75-110); TOTAL PROTEIN 7.1 g/dL (6.3-8.3)
[2017-03-04 09:17] LABS: CALCIUM 9.1 mg/dl (8.6-10.4)
--- NOTE | 2017-03-04 14:13 | PCM.PYCHPN ---
Psychiatric Progress Note - Psychiatric Progress Note Patient seen today, length of contact: 15 minutes Patient Chief Complaint: I'm feeling much better with the treatment. Swelling and pain in my leg is less. Problems Identified/Issues Discussed: Patient seen. Chart reviewed. Case discussed with the staff. Issues related to illness and treatment were discussed with the patient. Reported compliant with treatment with no adverse affects. Tolerating treatment very well. Reported feeling much better. Swelling and pain in his left leg is also less. Report of blood culture is negative. Needs more time for stabilization. Medicine is on the case. Patient time of evaluation, patient was awake alert oriented 3, had no delusions, no auditory or visual hallucinations, no suicidal ideations or homicidal ideations. Medical Problems: Hypercholesterinemia Diagnostic Results: Reviewed DSM 5 Symptoms Update: Improving with treatment Medication Change: No Medical Record Reviewed: Yes Consults ordered or reviewed: Reviewed Mental Status Examination - Cognitive Function Orientation: Person, Place, Situation, Time Memory: Intact Attention: WNL Concentration: WNL Association: WN Fund of Knowledge: [facility] Decription of patient's judgement and insights: Fair - Mood Mood: Depressed (Much less than before) - Affect Affect: Other (Appropriate) - Speech Speech: Appropriate - Formal Thought Process Formal Thought Process: No Impairment Psychotic Thoughts and Behaviors: None - Suicidal Ideation Suicidal Ideation: No - Homicidal Ideation Homicidal Ideation: No Goal/Treatment Plan - Goal/Treatment Plan Need for Continued Stay: Remain at risks for inpatient hospitalization, Discharge may exacerbated symptoms, Severe functional impairment Progress Toward Problem(s) and Goals/Treatment Plan: Patient education Supportive therapy Continue treatment as before Medical team is also on the case for his left leg swelling and pain. Patient will go to [facility] for follow-up care with his psychiatrist , after discharge from the hospital. Estimated Date of D/C: 03/06/17 - Smoking Cessation Smoking Cessation Initiated: No
[2017-03-05 08:54] LABS: BASO # 0.1 K/uL (0.0-0.2); BASO % 0.8 % (0.0-2.0); EOS # 0.3 K/uL (0.0-0.7); EOS % 3.1 % (0.0-4.0); HEMATOCRIT 42.6 % (35.0-51.0); LYMPH # 3.1 K/uL (1.0-4.3); LYMPH % 33.5 % (20.0-40.0); MEAN CELL VOLUME 88.5 fL (80.0-94.0); MEAN CORPUSCULAR HEMOGLOBIN 30.6 pg (27.0-31.0); MEAN CORPUSCULAR HGB CONC 34.5 g/dL (33.0-37.0); MEAN PLATELET VOLUME 7.3 fL (7.2-11.7); MONO # 0.6 K/uL (0.0-0.8); MONO % 6.9 % (0.0-10.0); RED CELL DISTRIBUTION WIDTH 13.2 % (11.5-14.5); WHITE BLOOD COUNT 9.2 K/uL (4.8-10.8)
[2017-03-05 09:11] LABS: CHLORIDE 102 mmol/L (98-107); POTASSIUM 4.2 mmol/L (3.6-5.2); SODIUM 136 mmol/L (132-148)
[2017-03-05 09:14] LABS: ALB/GLOB RATIO 1.6 (1.0-2.1); ALKALINE PHOSPHATASE 95 U/L (38-126); ALT/SGPT 45 U/L (21-72); AST/SGOT 31 U/L (17-59); BILIRUBIN,TOTAL 0.7 mg/dL (0.2-1.3); BLOOD UREA NITROGEN 15 mg/dL (9-20); CALCIUM 8.9 mg/dl (8.6-10.4); CARBON DIOXIDE 24 mmol/L (22-30); GFR AFRICAN-AMERICAN > 60; GLUCOSE,RANDOM 80 mg/dL (75-110); TOTAL PROTEIN 6.3 g/dL (6.3-8.3)
--- NOTE | 2017-03-05 14:22 | PCM.PYCHPN ---
Psychiatric Progress Note - Psychiatric Progress Note Patient seen today, length of contact: 15 minutes Patient Chief Complaint: I'm feeling much better with the treatment. Swelling and pain in my leg is less. I'm waiting to go home Problems Identified/Issues Discussed: Patient seen. Chart reviewed. Case discussed with the staff. Issues related to illness and treatment were discussed with the patient. Reported compliant with treatment with no adverse affects. Tolerating treatment very well. Reported feeling much better. Swelling and pain in his left leg is also less. Medicine is on the case. His last dose of the particular be tomorrow. Patient time of evaluation, patient was awake alert oriented 3, had no delusions, no auditory or visual hallucinations, no suicidal ideations or homicidal ideations. Medical Problems: Hypercholesterinemia Diagnostic Results: Reviewed DSM 5 Symptoms Update: Improving with treatment Medication Change: No Medical Record Reviewed: Yes Consults ordered or reviewed: Reviewed Mental Status Examination - Cognitive Function Orientation: Person, Place, Situation, Time Memory: Intact Attention: WNL Concentration: WNL Association: WN Fund of Knowledge: [facility] Decription of patient's judgement and insights: Fair - Mood Mood: Neutral - Affect Affect: Other (Appropriate) - Speech Speech: Appropriate - Formal Thought Process Formal Thought Process: No Impairment Psychotic Thoughts and Behaviors: None - Suicidal Ideation Suicidal Ideation: No - Homicidal Ideation Homicidal Ideation: No Goal/Treatment Plan - Goal/Treatment Plan Need for Continued Stay: Remain at risks for inpatient hospitalization, Discharge may exacerbated symptoms, Severe functional impairment Progress Toward Problem(s) and Goals/Treatment Plan: Patient education Supportive therapy Continue treatment as before Patient will go to [facility] for follow-up care with his psychiatrist , after discharge from the hospital. Estimated Date of D/C: 03/06/17 - Smoking Cessation Smoking Cessation Initiated: No
[2017-03-06 07:24] VITALS: BP 105/68; PULSE 51; RESP 18; TEMP 98.1
--- NOTE | 2017-03-06 10:16 | PCM.PYCHDC ---
Mental Status Examination - Mental Status Examination Orientation: Person, Place, Situation, Time Memory: Intact Mood: Neutral Affect: Constricted Speech: Soft Attention: WNL Concentration: WNL Association: WNL Fund of Knowledge: WNL Formal Thought Process: No Impairment Description of patient's judgement and insight: good, fair Psychotic Thoughts and Behaviors: denies any AVH Suicidal Ideation: No Current Homicidal Ideation?: No Discharge Summary - Discharge Note Reason for Hospitalization: Patient is a 51 years old , unemployed, currently homeless male with history of bipolar 1 disorder, following up with his psychiatrist at [facility], currently noncompliant for last 1 week was admitted due to suicidal ideations. Initially patient came to the ER for the treatment of left leg swelling and pain. In the ER patient expressed suicidal ideations and depression and was admitted to psych floor. Patient reported feeling depressed with decreased sleep no change in appetite had suicidal ideations before without any plan. Patient denied any current suicidal ideations. Denied any suicidal attempts. Denied any psychotic or anxiety symptoms. History of more than 10 inpatient psychiatric admissions. Reported using cannabis in the past. Last use reported 3 years ago. Patient has history of appendectomy, tonsillectomy and left tibia and ankle surgery. Patient has history of incarceration first about 3 years ago for possession of drugs and second time more than one year ago for criminal mischief. Not on probation. Patient was born in [place], has Masters in Globial studies. His last job was 4 years ago. According to patient he lost his job due to downsizing of the company. He is and has no children. Currently homeless for last 3 years. Height is 6 feet 2 inches and weight is 185 pounds. Consultations:: List each consultation separately and include: 1. Reason for request. 2. Findings. 3. Follow-up Summary of Hospital Course include:: 1. Description of specific treatment plan utilized for patients during their course of treatmen. 2. Summarize the time- course for resolution of acute symptoms and/or regressed behaviors. 3. Describe issues identified and worked on during hospitalization. 4. Describe medication utilized. 5. Describe medical problems identified and treated. 6. Reassessment of suicide risk Summary of Hospital Course: During the course of his stay, patient (pt) started progressively improving and he no longer remained irritable, depressed, and suicidal. His mood was improved and he started attending groups and meetings and started socializing. Patient denied any feelings of hopelessness, helplessness, and worthlessness, denied any problem with the sleep or appetite, denied suicidal ideation or homicidal ideation. Pt denied any auditory or visual hallucinations. Some changes were made in his current medications and patient was discharged on following medications. He tolerated these medications very well and denied any side effects. CBT and OR were used. He was discharged to [facility]. - Final Diagnosis (DSM 5) Condition upon Discharge: STABLE DSM 5: Bipolar 1 disorder most recent episode depressed Disposition: HOME/ ROUTINE Follow-up Treatment Plan: Education: Pt was educated and counseled about the risks and benefits of taking and not taking medications. Pt was educated and counseled about the risks of drinking and abusing drugs. Pt was educated and counseled to go to the ER or call 911 if pt develop suicidal ideation or homicidal ideation, worsening of symptoms or severe side effects of the meds. Prescriptions/Medication Reconciliation: [place] Carbonate [[place] Carbonate 300MG] 900 mg PO HS 30 Days #30 cap traZODone [Desyrel] 100 mg PO HS #30 tab - Smoking Cessation Smoking Cessation Medication prescribed: No - Antipsychotic Medications Pt discharged on 2 or more routine antipsychotic medications: No
== END 2017-03-06 12:50 | disposition home or self-care (01) | DRG 430 ==
LOC: C.ER 08:59 → C.5E 12:44
PROC: GZ56ZZZ Individual Psychotherapy, Supportive (ICD-10-PCS; principal; 2017-02-27)
DX: F31.30 Bipolar disorder, current episode depressed, mild or moderate severity, unspecified (principal); L03.116 Cellulitis of left lower limb; R45.851 Suicidal ideations; E78.00 Pure hypercholesterolemia, unspecified; F41.9 Anxiety disorder, unspecified; Z59.0 Homelessness; Z87.891 Personal history of nicotine dependence; Z91.19 Patient's noncompliance with other medical treatment and regimen